=== PATIENT | female | born 1970 | race African-American/Black ===

== ENCOUNTER 2016-11-24 16:16 | Emergency (ER) | payer MEDICAID ==
[~2016-11-24] VITALS: Ht 165.1 cm; Wt 81.0 kg
[~2016-11-24 16:16] MED LIST: AZIT1PAC10
[2016-11-24 23:46] VITALS: BP 104/71
== END 2016-11-25 00:47 | disposition home or self-care (01) ==
LOC: ER 16:16
DX: J01.00 Acute maxillary sinusitis, unspecified (principal); F17.290 Nicotine dependence, other tobacco product, uncomplicated
CPT/HCPCS: 99283

== ENCOUNTER 2019-05-14 07:24 | Emergency (ER) | payer MEDICAID ==
[~2019-05-14] VITALS: Ht 165.1 cm; Wt 82.0 kg
[2019-05-14 07:26] VITALS: BP 137/87
[2019-05-14] MEDS ORDERED: MORPHINE SULFATE 10 MG/ML CPJ IM ONE (08:00)
[2019-05-14] MEDS ORDERED: ONDANSETRON 4MG ODT PO ONE (08:00)
== END 2019-05-14 08:14 | disposition home or self-care (01) ==
LOC: ER 07:34
DX: R68.84 Jaw pain (principal); K04.90 Unspecified diseases of pulp and periapical tissues
CPT/HCPCS: 96372; 99283; J2270; Q0162

== ENCOUNTER 2021-04-10 07:37 | Emergency (ER) | payer OTHER ==
[~2021-04-10] VITALS: Ht 175.3 cm; Wt 110.0 kg
[2021-04-10 09:03] LABS: BASOPHILS % 0.7 % (0.0-2.0); EOSINOPHILS % 0.6 % (0.0-5.0); HEMATOCRIT. 42.2 % (36.0-48.0); HEMOGLOBIN. 14.2 g/dL (12.0-16.0); LYMPHOCYTES % 20.1 % (20.0-50.0); MEAN CORPUSCULAR HEMOGLOBIN 31.3 pg (28.0-32.0); MEAN CORPUSCULAR VOLUME 93.3 fL (81.0-99.0); MEAN PLATELET VOLUME 8.7 fl (7.4-10.4); NEUTROPHILS % 70.6 % (40.0-76.0); PLATELET 270 x1000/uL (130-400); RED BLOOD CELL COUNT 4.52 mill/uL (4.2-5.4)
[2021-04-10 09:06] LABS: CHLORIDE 104 mEq/L (98-107)
[2021-04-10 09:37] LABS: *BENZODIAZEPINES SCREEN URINE NEGATIVE (NEGATIVE)
[2021-04-10 09:38] LABS: *AMPHETAMINES SCREEN URINE NEGATIVE (NEGATIVE); METHADONE URINE SCREEN NEGATIVE (NEGATIVE); OPIATES URINE SCREEN NEGATIVE (NEGATIVE); PHENCYCLIDINE URINE SCREEN NEGATIVE (NEGATIVE)
[2021-04-10 09:39] LABS: *BARBITURATES SCREEN URINE NEGATIVE (NEGATIVE)
[2021-04-10 09:43] LABS: *COCAINE SCREEN URINE PRESUMTIVE POSITIVE (NEGATIVE); CANNABINOID URINE SCREEN PRESUMTIVE POSITIVE (NEGATIVE)
[2021-04-10 15:11] VITALS: BP 136/89
== END 2021-04-10 15:25 | disposition home or self-care (01) ==
LOC: ER 07:37
DX: R00.2 Palpitations (principal); J45.909 Unspecified asthma, uncomplicated; F14.10 Cocaine abuse, uncomplicated
CPT/HCPCS: 36415; 71045; 80053; 80305; 84484; 85025; 93005; 99285

== ENCOUNTER 2021-04-17 11:41 | Emergency (ER) | payer OTHER ==
[~2021-04-17] VITALS: Ht 165.1 cm; Wt 77.0 kg
[2021-04-17] MEDS ORDERED: KETOROLAC 60MG/2ML VIAL IM ONE (12:00)
[2021-04-17] MEDS ORDERED: IBUP-2029 MT (14:21)
[2021-04-17 14:33] VITALS: BP 119/78
== END 2021-04-17 14:36 | disposition home or self-care (01) ==
LOC: ER 11:59
DX: S09.8XXA Other specified injuries of head, initial encounter (principal); M25.511 Pain in right shoulder; Y07.59 Other non-family member, perpetrator of maltreatment and neglect; Y04.2XXA Assault by strike against or bumped into by another person, initial encounter; Y93.89 Activity, other specified; Y92.89 Other specified places as the place of occurrence of the external cause
CPT/HCPCS: 73030; 96372; 99283; J1885